=== PATIENT | female | born 1940 | race Caucasian/White ===

== ENCOUNTER 2019-07-20 12:34 | Emergency (ER) | payer MEDICARE ==
[~2019-07-20] VITALS: Ht 170.2 cm; Wt 81.7 kg
[2019-07-20] MEDS ORDERED: PROBIOTIC1 EAC1 PO (12:56)
[2019-07-20] MEDS ORDERED: CENTRUM SILVER1 EAC2 PO (12:56)
[2019-07-20] MEDS ORDERED: Coq-1030 MG PO (12:56)
[2019-07-20] MEDS ORDERED: Fish Oil Conc1000 MG PO (12:57)
== END 2019-07-20 13:36 | disposition home or self-care (01) ==
LOC: ER 12:34
DX: M13.842 Other specified arthritis, left hand (principal); Z88.2 Allergy status to sulfonamides; Z88.0 Allergy status to penicillin; Z79.899 Other long term (current) drug therapy
CPT/HCPCS: 73140; 99283-25

== ENCOUNTER → 2019-08-10 | Outpatient (CLI) | payer MEDICARE ==
[~2019-08-10] MED LIST: CENTRUM SILVER1 EAC2 PO; Coq-1030 MG PO; Fish Oil Conc1000 MG PO; PROBIOTIC1 EAC1 PO
[2019-08-10 15:15] LABS: BASOPHILS ABSOLUTE AUTO 0.06 K/mm3 (0.00-0.23); BASOPHILS PERCENT AUTO 1 % (0-2); EOSINOPHILS ABSOLUTE AUTO 0.09 K/mm3 (0.00-0.68); EOSINOPHILS PERCENT AUTO 1 % (0-6); Hematocrit 37.7 % (33.0-51.0); IMMATURE GRAN ABSOLUTE AUTO 0.02 K/mm3 (0.00-0.10); IMMATURE GRAN PERCENT AUTO 0 % (0-1); LYMPHOCYTES ABSOLUTE AUTO 1.52 K/mm3 (0.84-5.20); LYMPHOCYTES PERCENT AUTO 18 % (21-46); MONOCYTES ABSOLUTE AUTO 0.75 K/mm3 (0.16-1.47); MONOCYTES PERCENT AUTO 9 % (4-13); Mean Corpuscular HGB 29.4 pg (26.0-34.0); Mean Corpuscular HGB Conc 31.8 g/dL (31.5-36.5); Mean Corpuscular Volume 92 fL (80-100); Mean Platelet Volume 11.5 fL (9.1-12.4); NEUTROPHILS ABSOLUTE AUTO 5.97 K/mm3 (1.96-9.15); NEUTROPHILS PERCENT AUTO 71 % (41-73); Platelet Count 278 K/mm3 (150-400); RDW Coefficient Variation 13.5 % (11.7-14.2); RDW Standard Deviation 45.9 fL (35.1-46.3); Red Blood Cell Count 4.08 M/mm3 (3.80-5.20); White Blood Cell Count 8.41 K/mm3 (4.00-11.30)
[2019-08-10 15:36] LABS: Albumin, Blood 3.1 g/dL (3.4-5.0); Albumin/Globulin Ratio 0.8 (0.8-1.8); Bilirubin, Total 0.2 mg/dL (0.1-1.0); Bun/Creatinine Ratio 19.4 (12.0-20.0); Creatinine, Blood 0.98 mg/dL (0.40-1.00); Globulin, Blood 4.1 g/dL (2.2-4.0); Thyroid Stimulating Hormone 0.935 uIU/mL (0.360-4.800); Total Protein, Blood 7.2 g/dL (6.4-8.2)
[2019-08-11 12:02] LABS: Antinuclear Antibody Screen Negative (Negative)
== END | disposition home or self-care (01) ==
LOC: LAB EV 15:08 → LAB SHORT 15:08
PROVIDERS: Physician Assistant
DX: M35.3 Polymyalgia rheumatica (principal); R53.83 Other fatigue
CPT/HCPCS: 80053; 84443; 84550; 85025; 85651; 86038; 86431

== ENCOUNTER → 2019-09-08 | Outpatient (CLI) | payer MEDICARE | END | disposition home or self-care (01) | LOC: LAB SHORT 13:08 → LAB EV 13:08 | DX: M79.10 Myalgia, unspecified site (principal) | CPT/HCPCS: 85651 ==

== ENCOUNTER 2020-03-02 16:24 | Inpatient (IN) | payer MEDICARE ==
[~2020-03-02] VITALS: Ht 170.2 cm; Wt 98.3 kg
[~2020-03-02 16:24] MED LIST changes: -CENTRUM SILVER1 EAC2 PO
[2020-03-02 17:06] LABS: BASOPHILS ABSOLUTE AUTO 0.04 K/mm3 (0.00-0.23); BASOPHILS PERCENT AUTO 0 % (0-2); EOSINOPHILS PERCENT AUTO 0 % (0-6); Hematocrit 40.3 % (33.0-51.0); IMMATURE GRAN ABSOLUTE AUTO 0.13 K/mm3 (0.00-0.10); IMMATURE GRAN PERCENT AUTO 1 % (0-1); LYMPHOCYTES ABSOLUTE AUTO 0.95 K/mm3 (0.84-5.20); LYMPHOCYTES PERCENT AUTO 6 % (21-46); MONOCYTES ABSOLUTE AUTO 0.86 K/mm3 (0.16-1.47); MONOCYTES PERCENT AUTO 5 % (4-13); Mean Corpuscular HGB 29.7 pg (26.0-34.0); Mean Corpuscular HGB Conc 32.3 g/dL (31.5-36.5); Mean Corpuscular Volume 92 fL (80-100); Mean Platelet Volume 11.9 fL (9.1-12.4); NEUTROPHILS ABSOLUTE AUTO 15.25 K/mm3 (1.96-9.15); NEUTROPHILS PERCENT AUTO 89 % (41-73); Platelet Count 196 K/mm3 (150-400); RDW Coefficient Variation 14.6 % (11.7-14.2); Red Blood Cell Count 4.37 M/mm3 (3.80-5.20); White Blood Cell Count 17.23 K/mm3 (4.00-11.30)
[2020-03-02 17:16] LABS: Alanine Aminotransfer (ALT/SGP 19 U/L (12-78); Albumin/Globulin Ratio 0.9 (0.8-1.8); Alk Phos 64 U/L (50-136); Anion Gap 7 mmol/L (6-16); Aspartate Aminotrans (AST/SGOT 12 U/L (12-37); Bilirubin, Total 0.8 mg/dL (0.1-1.0); Blood Urea Nitrogen 21 mg/dL (8-24); Bun/Creatinine Ratio 21.1 (12.0-20.0); CO2, Blood 24 mmol/L (21-32); Calcium, Blood 8.7 mg/dL (8.5-10.1); Chloride, Blood 108 mmol/L (98-108); Globulin, Blood 3.5 g/dL (2.2-4.0); Glomerular Filtration Rate 57 (60-); Glucose, Blood 121 mg/dL (70-99); Potassium, Blood 3.7 mmol/L (3.5-5.5); Sodium, Blood 139 mmol/L (136-145); Total Protein, Blood 6.5 g/dL (6.4-8.2); Troponin I <0.015 ng/mL (0.000-0.040)
[2020-03-02 19:06] LABS: Source, Urine Clean Catch
[2020-03-02 19:11] LABS: Bilirubin, Urine Neg (Neg); Blood, Urine 4+ (Neg); Glucose Qualitative, Urine Neg (Neg); Ketones, Urine 1+ (Neg); Leukocyte Esterase, Urine Neg (Neg); Nitrite, Urine Neg (Neg); Protein, Urine Neg (Neg); Specific Gravity, Urine 1.015 (1.003-1.022); Urobilinogen, Urine NORM (Normal)
[2020-03-02 19:26] LABS: Appearance, Urine Clear (Clear); Color, Urine Yellow (P-Yellow)
[2020-03-02 19:28] LABS: Bacteria Not Seen /hpf; Squamous Epithelial Cells Rare /hpf (Few); White Blood Cells, Urine Not Seen /hpf (0-5)
[2020-03-02] MEDS ORDERED: CENTRUM SILVER1 EAC2 PO (20:38)
[2020-03-02] MEDS ORDERED: PRED1 PO (20:39)
[2020-03-02] MEDS ORDERED: Hydroxychloroq200 MG PO (20:40)
[2020-03-02] MEDS ORDERED: Flonase 0.05% N16 GM (20:41)
[2020-03-02] MEDS ORDERED: GLUCOSAMINE CHONDROI PO (20:45)
--- NOTE | 2020-03-02 23:13 | NUR ---
03/02/20 0602 Ismael Romero PT RECIEVED ANTIBIOTICS IN ED AND WILL BE ON SCHEDULED
--- NOTE | 2020-03-03 00:20 | NUR ---
ADMIT RECEIVED FROM OR S/P SIGMOID COLECTOMY WITH COLOSTOMY. RECOVERY DONE X 1 HOUR AND THEN TRANSFERRED TO ICU STATUS. PT ROUSES TO STIMULI, BUT SLEEPS WHEN UNDISTURBED. ORIENTED AND COOPERATIVE WHEN AWAKE. ATTEMPTS TO ASSIST WITH REPOSITIONING. MOVES ALL EXTREMITIES. MONITOR SHOWS NSR, RATE 80s. BP STABLE. RA SATS STABLE. RESPIRATIONS EVEN AND UNLABORED, BUT SHALLOW. MIDLINE ABDOMINAL INCISION WITH ENRIQUE DRSG INTACT- SMALL AMOUNT OF SANGUINOUS DRAINAGE NOTED. COLOSTOMY TO LEFT ABDOMEN. STOMA IS RED. BTs NOTED IN LUQ. DENIES C/O NAUSEA. OVALLE PATENT AND DRAINING YELLOW URINE. SEE ADMIT ASSESSMENT FOR FULL ASSESSMENT.
[2020-03-03 03:33] LABS: BASOPHILS ABSOLUTE AUTO 0.01 K/mm3 (0.00-0.23); BASOPHILS PERCENT AUTO 0 % (0-2); Hematocrit 38.1 % (33.0-51.0); Hemoglobin 12.1 g/dL (11.5-16.0); LYMPHOCYTES ABSOLUTE AUTO 0.72 K/mm3 (0.84-5.20); LYMPHOCYTES PERCENT AUTO 8 % (21-46); MONOCYTES ABSOLUTE AUTO 0.37 K/mm3 (0.16-1.47); MONOCYTES PERCENT AUTO 4 % (4-13); Mean Corpuscular HGB 29.3 pg (26.0-34.0); Mean Corpuscular HGB Conc 31.8 g/dL (31.5-36.5); Mean Corpuscular Volume 92 fL (80-100); Mean Platelet Volume 11.3 fL (9.1-12.4); Platelet Count 167 K/mm3 (150-400); RDW Coefficient Variation 14.8 % (11.7-14.2); RDW Standard Deviation 50.4 fL (35.1-46.3); Red Blood Cell Count 4.13 M/mm3 (3.80-5.20); White Blood Cell Count 9.65 K/mm3 (4.00-11.30)
[2020-03-03 03:34] LABS: EOSINOPHILS PERCENT AUTO 0 % (0-6); IMMATURE GRAN ABSOLUTE AUTO 0.06 K/mm3 (0.00-0.10); IMMATURE GRAN PERCENT AUTO 1 % (0-1); NEUTROPHILS ABSOLUTE AUTO 8.49 K/mm3 (1.96-9.15); NEUTROPHILS PERCENT AUTO 88 % (41-73)
[2020-03-03 03:48] LABS: Anion Gap 6 mmol/L (6-16); Blood Urea Nitrogen 15 mg/dL (8-24); CO2, Blood 24 mmol/L (21-32); Calcium, Blood 7.8 mg/dL (8.5-10.1); Chloride, Blood 112 mmol/L (98-108); Creatinine, Blood 0.88 mg/dL (0.40-1.00); Glomerular Filtration Rate >60 (60-); Glucose, Blood 115 mg/dL (70-99); Potassium, Blood 3.7 mmol/L (3.5-5.5); Sodium, Blood 142 mmol/L (136-145)
[2020-03-03 04:05] LABS: BAND PERCENT MAN 24 % (0-8); BASOPHILS ABSOLUTE MAN 0.09 K/mm3 (0.00-0.23); BASOPHILS PERCENT MAN 1 % (0-2); EOSINOPHILS PERCENT MAN 0 % (0-6); LYMPHOCYTES ABSOLUTE MAN 0.67 K/mm3 (0.84-5.20); LYMPHOCYTES PERCENT MAN 7 % (21-46); METAMYELOCYTE ABSOLUTE MAN 0.19 K/mm3 (0.00-0.00); METAMYELOCYTE PERCENT MAN 2 % (0-0); MONOCYTES ABSOLUTE MAN 0.38 K/mm3 (0.16-1.47); MONOCYTES PERCENT MAN 4 % (4-13); MYELOCYTE ABSOLUTE MAN 0.09 K/mm3 (0.00-0.00); MYELOCYTE PERCENT MAN 1 % (0-0); SEG NEUTROPHILS PERCENT MAN 61 % (41-73); TOTAL CELLS COUNTED 100
--- NOTE | 2020-03-03 06:20 | NUR ---
O2 O2 SATS DECREASE TO 88% WHILE SLEEPING. O2 ON @ 2LNC AT THIS TIME.
--- NOTE | 2020-03-03 06:48 | NUR ---
SHIFT SUMMARY NO ACUTE CHANGES DURING NOC. ROUSES EASILY TO STIMULI. VERY TALKATIVE WHEN AWAKE. IQUGMIUT. ORIENTED AND COOPERATIVE. EXPRESSES CONCERN REGARDING BILLS THAT NEED TO BE PAID AND THE CARE OF HER SERVICE ANIMAL. PLAN IS TO CALL HER NEIGHBOR THIS AM. ATTEMPTS TO ASSIST WITH REPOSITIONING. MEDICATED WITH FENTANYL X 2 DOSE FOR C/O 7-05/10 PAIN WITH GOOD RELIEF. PT IS ENCOURAGED TO COUGH AND DEEP BREATHE FREQUENTLY, BUT NEEDS FREQUENT REMINDERS. ALSO ENCOURAGED PT TO SPLINT ABDOMEN BEFORE COUGHING. MIDLINE ABD INCISION UNCHANGED. NO DRAINAGE NOTED TO COLOSTOMY. STOMA REMAINS RED. DENIED NAUSEA. OVALLE PATENT AND DRAINING. LR INFUSING @ 125CC/HR. SCDs TO BLE. WILL REPORT TO ONCOMING RN WHEN AVAILABLE.
--- NOTE | 2020-03-03 10:01 | NUR ---
ASSUMED CARE OF PT AT 0700. REPORT FROM ALMITA TELLES. PT RESTING IN BED. WAKES c VERBAL STIMULI. A&OX 4. ANSWERS QUESTIONS APPROPRIATELY. FOLLOWS COMMANDS. PT C/O LLQ PAIN AND GENERALIZED CRAMPING. UNRELIEVED FROM FENTANYL. FENTANYL QUALITY CONTROLLER STARTED, DR SANTIAGO NOTIFIED. MEDICATED c VALIUM IV. ABD SOFT, TENDER. BY X 4. ENRIQUE DRESSING MIDLINE, C/D/I, RED DRAINAGE ON BOTTOM. COLOSTOMY TO LLQ. SCANT PINK DRAINAGE IN BAG. LUNGS DIMINISHED IN BASES. PT P/W/D. ENCOURAGED COUGH AND DEEP BREATHING. PT RELUCTANT D/T PAIN. VSS. PT OK TO HAVE ICE CHIPS PER DR SANTIAGO. WILL CONTINUE TO MONITOR.
--- NOTE | 2020-03-03 17:27 | NUR ---
SHIFT SUMMARY FENTANYL MANAGER PARKING STARTED THIS SHIFT. PT STATES PAIN RANGED FROM 5-8/10. ALSO REPORTED CRAMPING. MEDICATED c VALIUM IV ORDERED. PT c INCREASED PAIN c MOVEMENT. ENCOURAGED DEEP BREATHING, PT RELUCTANT D/T PAIN. ABD SOFT, TENDER, BT X 4. DRESSING C/D/I. NO CHANGE TO COLOSTOMY SITE. VSS. REPORT TO NELIA TELLES. PT TRANSFERRED TO SURGICAL FLOOR. ALL BELONGINGS c PT.
--- NOTE | 2020-03-04 06:07 | NUR ---
POD 1 S/P EXPLOR LAP SIGMOID DONTA W/ COLOSTOMY DUE TO PERFORATION OF SIGMOID COLON. PT PAIN MGMNT W/ CONTRACT NEGOTIATOR FENTANYL. HAS REFUSE REPOSITIONING DUE TO PAIN. NPO, W/ ICE CHIPS AND SIPS FOR MEDS. USED N/C 2L O2 AT SLEEP (PERSONAL PREFERNCE) SHE IS ON RA ON BASELINE/ REG HOURS. SHE WAS TEARY AT THE BEGINNING OF THE SHIFT WHEN SHE TALKS ABOUT HER MOTHER WHO YEARS AGO. EMO SUPPORT PRN. ABD WOUND VAC, SMALL AMT SANGUINOUS DRAIN AT THE BUTTOM. DISC OVALLE CATH. DENIES N/V, OSTOMY NO OUTPUT.
--- NOTE | 2020-03-04 08:06 | NUR ---
POD 2 S/P COLECTOMY+COLOSTOMY. PT VSS T/O NIGHT, SATS >90% ON RA, PT USING 2LNC WHILE SLEEPING FOR COMFORT. ENRIQUE DRESSING INTACT W/SMALL AMT SHADOWING AT DISTAL END. PAIN MGD W.ENROLLMENT ADVISOR+NON PHARM MEASURES. PT NPO X ICE CHIPS, NO N/V, NO OSTOMY OUTPUT. PT EMOTIONAL AT TIMES, NEEDING SUPPORT AND ENCOURAGEMENT OFTEN DURING NIGHT. PT ENCOURAGED TO ASSIST W/ADL'S AND REPOSITIONING, PT REFUSED ALL OFFERS OF REPOSITIONING DURING NIGHT. OVALLE CATH D/C THIS AM; AWAITING FIRST VOID. PT USING CALL LIGHT FOR ASSISTANCE, BEDSIDE REPORT GIVEN TO DAY RN.
--- NOTE | 2020-03-04 17:23 | NUR ---
PT CONTINUES TO COMPLAIN OF PAIN WITH ANY MOVEMENT . SHE REFUSES TO GET UP IN CHAIR AND REQUIRED A LOT OF ENCOURAGEMENT TO GET ONTO THE BSC. SHE COMPLAINS OF BEING DIZZY OR NAUSEATED WHEN BEING REPOSITIONED THOUGH HAS NOT ACTUALLY VOMITTED OR PASSED OUT WHEN SHE IS CHANGING POSITION. PT HAS HAD LIQUIDS AND JELLO, BOTH OF WHICH HAVE STAYED DOWN. PT HAS VOIDED IN BSC. CALL LIGHT WITHIN REACH.
--- NOTE | 2020-03-05 02:57 | NUR ---
PT'S LEFT HAND IV NOT PATENT, TENDER AND PT FELT PAIN WHILE FLUSHING. DC'S IV CATH INTACT. WRAPPED WITH COBAN AND GAUZE.
--- NOTE | 2020-03-05 06:43 | NUR ---
POD1 REPORTS NAUSEA, STS ATE TOO MUCH DINNER. SHE IS ON CLEAR LIQ DIET. AT 0130 SHE REPORTS CP AND SOB. SHE ALSO WANTED TO USE THE BEDSIDE COMODE TO URINATE. ALSO STS PRESSURE ON BACK FEELS LIKE WANTING TO DEFACATE. PT STS FEELING DIZZY AND NAUSEA WHEN MOVING TO BEDSIDE COMODE. SHE ALSO C/O OF IV HURTING ON L HAND. DC'D IV. DENIES PASSING FLATUS. NO BM. PAIN MNGMENT W/ PROCESS ENGINEERING MANAGER PUMP. VS WNL.
--- NOTE | 2020-03-05 08:05 | NUR ---
POD 2 S/P COLECTOMY+COLOSTOMY. PT VSS T/O NIGHT. NO NEW DRESSING NOTED ON DRESSIN, GOOD SEAL AND SX MAINTAINED. PT HAD BRIEF EPISODE OF NAUSEA/DIZZINESS WHEN FIRST UP, REP RELIEF W/ZOFRAN. BT HYPO, NO OSTOMY OUTPUT. PT DID C/O UPPER ABD/CP REP RELIEF AFTER BELCHING SEVERAL TIMES. PT NEEDING CONT ENCOURAGEMENT AND MOTIVATION TO MOBILIZE. PT REP PAIN HELGA W/COUNSELOR AIDE. PT USING CALL LIGHT FOR ASSISTANCE, REPORT GIVEN TO DAY RN.
--- NOTE | 2020-03-05 09:25 | NUR ---
TALKED WITH THE PATIENT ABOUT GETTING UP TODAY. SHE NOTED THAT SHE THINKS SHE IS DIZZY AND IS WEARY OF GETTING UP TODAY. WILL CONTINUE TO TRY.
--- NOTE | 2020-03-05 18:05 | NUR ---
SHIFT SUMMARY PATIENTS VITALS ARE STABLE. SHE HAS BEEN UP IN THE CHAIR TODAY TWICE AND IS CURRENTLY PLEASANT. SHE HAS BEEN PRESSING HER ON DEMAND PAIN BUTTON FOR HER MEAT STRINGER PUMP. SHE IS ABLE TO GET UP FROM THE BED TO THE BEDSIDE COMMODE ONE PERSON, MORE FOR ANXIETY. DR. TAYLOR DID OKAY FOR THE PATIENT TO USE HER NOELLE MANISH OIL AN INHALANT FOR ANXIETY.
--- NOTE | 2020-03-06 04:34 | NUR ---
SHIFT SUMMARY: GABRIELLA IS A&OX4. VERBOSE. SHE RATES HER PAIN 7-8/10, STATING THAT SHE IS HAVING INCREASED CRAMPING AND ABDOMINAL DISCOMFORT, BP IS ELEVATED THIS SHIFT. SHE IS PASSING FLATUS THROUGH HER STOMA. NEW ENRIQUE AND OSTOMY APPLIANCE APPLIED THIS SHIFT. SHE IS TOLERATING CLEAR LIQUIDS WITH MINIMAL NAUSEA. SHE REQUESTED ANTIFUNGAL POWDER FOR UNDERNEATH HER LEFT BREAST WHICH WAS FOUND TO BE REDDENED. SHE ALSO REQUESTED EYE DROPS FOR DRY EYE. SHE IS A ONE PERSON ASSIST TO THE BEDSIDE COMMODE. SHE COMPLAINED OF FEELING FAINT BOTH TIMES SHE WAS UP TO THE COMMODE. VSS. SHE IS ABLE TO MAKE HER NEEDS KNOWN. SHE IS LYING IN BED WITH THE CALL LIGHT IN REACH. WILL REPORT TO DAY SHIFT RN.
--- NOTE | 2020-03-06 16:16 | NUR ---
Shift Summary AOx3. Patient is a SBA to the BS. Patient encouraged to ambulate in room throughout the day. Patient worked with PT. Patient voiding clear yellow urine. Patient passing flatus through ostomy with scant amount light pink fluid. Pain controlled with Fentanyl HEAVY EQUIPMENT SALES MANAGER pump. Patient advanced to full liquid diet this shift. Midline incision CDI.
--- NOTE | 2020-03-06 22:17 | NUR ---
L FA IV HAS SOME REDNESS, NO SWELLING, PT REPORTS ITCHING, LEVOFLOXACIN CURRENTLY INFUSING. IV FLUSHES WELL AND DRAWS BLOOD WELL, PRIMARY RN HAS CHANGED IVF NS TO RUN CONCURENT WITH LEVOFLOXACIN, SHE WILL REASSESS.
--- NOTE | 2020-03-07 04:37 | NUR ---
SHIFT SUMMARY: GABRIELLA IS A&OX4, WITH SOME EPISODES OF MILD CONFUSION. SHE IS TOLERATING A CLEAR LIQUID DIET WELL. FENTANYL PRIMARY CARE PROVIDER HAS BEEN DISCONTINUED. PT TAKING ORAL NORCO. SHE IS ABLE TO MAKE HER NEEDS KNOWN. ENRIQUE PATENT, OSTOMY DRAINING FLATUS AND SMALL AMOUNTS LIQUID BROWN/GREEN STOOL. SHE IS A ONE PERSON ASSIST TO THE BEDSIDE COMMODE. SHE USES HER CALL LIGHT APPROPRIATELY. SHE IS CONCERNED ABOUT TAKING A FULL TABLET OF NORCO AND WONDERS IF A HALF MAY BE APPROPRIATE FOR HER DUE TO HER HISTORY OF SENSITIVITY TO MEDICATION. BILATERAL IVs PATENT. SHE IS LYING IN BED WITH HER CALL LIGHT IN REACH. WILL REPORT TO DAY SHIFT RN.
--- NOTE | 2020-03-07 16:54 | NUR ---
Shift summary Ostomy putting out small amount liquid brown stool. Flatus passing through stoma. Pain controlled with PO Alexander. Patient tolerating regular diet. Patient has been a 1 person assist in the room. Call light within patient reach.
--- NOTE | 2020-03-08 05:50 | NUR ---
SHIFT SUMMARY: GABRIELLA IS A&O. SHE REPORTS NAUSEA AFTER ADVANCING TO REGULAR DIET. SHE IS A ONE PERSON ASSIST TO THE BEDSIDE COMMODE. SHE IS ABLE TO REPOSITION HERSELF IN BED. IVs TO LEFT FOREARM AND RIGHT HAND PATENT. ENRIQUE TO MIDLINE. OSTOMY DRAINING LIQUID GREEN/BROWN STOOL AND FLATUS. VSS, ORA. SHE DECLINES TO TAKE PART IN SANDRA OR OSTOMY CARE. SHE USES THE CALL LIGHT APPROPRIATELY. SHE IS LYING IN BED WITH THE CALL LIGHT IN REACH. WILL REPORT TO DAY SHIFT RN.
--- NOTE | 2020-03-08 13:59 | NUR ---
PT REPORTS FEELING DIZZY AT THIS TIME. BP WNL. PT REPORTS PAIN AND ALSO REPORTS FEELING "EXHAUSTED." PT WAS ASSISTED BACK TO BED FROM THE CHAIR WITHOUT DIFFICULTIES, SHE WAS ABLE TO REPOSITION HERSELF IN BED. STAFF ASSISTED WITH PLACING PILLOWS UNDER HER LEGS FOR COMFORT. PILLOWS ALSO PLACED AT HER SIDES FOR ADDITIONAL COMFORT. PHONE AND CALL LIGHT WITHIN REACH. PT DECLINED PAIN MEDICATION AT THIS TIME.
--- NOTE | 2020-03-08 17:56 | NUR ---
PT HAS COMPLAINED OF DIZZINESS THIS AFTERNOON. SHE IS DENYING PAIN MEDICATION AT THIS TIME BECAUSE SHE IS AFRAID THE DIZZINESS WILL WORSEN. PT'S BP IS ELEVATED, DR. SANTIAGO NOTIFEID. DR. SANTIAGO WAS ALSO NOTIFIED OF R LEG PAIN. PT DESCRIBES THIS LEG PAIN SHARP AND BURNING. ICE RELIEVES PAIN. PT BELIEVES THE PAIN IS CORRELATED WITH ANTIBIOTIC ADMINISTRATION. DR. SANTIAGO WAS NOTIFIED OF THIS CONCERN; HE REPORTED THAT SHOULD NOT BE CAUSING THE PAIN. VSS. WILL CONTINUE TO MONITOR.
--- NOTE | 2020-03-08 19:10 | NUR ---
SHIFT SUMMARY PT IS POD# 5 FROM A SIGMOID COLECTOMY WITH OSTOMY. SHE HAS BEEN ALERT AND ORIENTED T/O THE SHIFT. PAIN HAS BEEN MANAGED WITH PO PAIN MEDICATION. PT DECLINED PAIN MEDICATION THIS AFTERNOON BECAUSE SHE WAS FEELING DIZZY. DR. SANTIAGO NOTIFIED OF DIZZINESS AND HIGH BP. PT GIVEN TYLENOL TO ATTEMPT TO MANAGE PAIN AND HELP WITH BP BUT AVOID DIZZINESS. PT HAS BEEN APPROPRIATE WITH STAFF THIS SHIFT, SHE PREFERS TO DIRECT HER OWN CARE. PT HAS BEEN PROVIDED WITH CARE, 2 STAFF MEMBERS OR STAFF AND STUDENT NURSE T/O THE DAY. VSS. REPORT GIVEN TO RANJAN TELLES.
[2020-03-09 04:35] LABS: Hematocrit 38.7 % (33.0-51.0); Hemoglobin 12.1 g/dL (11.5-16.0); Mean Corpuscular HGB 28.7 pg (26.0-34.0); Mean Corpuscular HGB Conc 31.3 g/dL (31.5-36.5); Mean Corpuscular Volume 92 fL (80-100); Mean Platelet Volume 11.2 fL (9.1-12.4); Platelet Count 241 K/mm3 (150-400); RDW Coefficient Variation 15.2 % (11.7-14.2); RDW Standard Deviation 51.6 fL (35.1-46.3); Red Blood Cell Count 4.21 M/mm3 (3.80-5.20); White Blood Cell Count 7.67 K/mm3 (4.00-11.30)
--- NOTE | 2020-03-09 04:44 | NUR ---
SHIFT SUMMARY POD #6 SIGMOID COLECTOMY WITH OSTOMY. ENRIQUE TO MIDLINE APPEARS C/D/I WITH NO DRAINAGE. OSTOMY PRODUCING SMALL AMOUNT OF LIGHT BROWN LIQUID, STOMA PINK/BEEFY RED. UP TO BSC WITH FWW/GB/SBA. VOIDING CLEAR YELLOW URINE WITHOUT DIFFICULTY. REPORTS SOME URGENCY WITH DRIBBLING IN ATTENDS X1. HELGA PO INTAKE. REPORTS ONE EPISODE OF NAUSEA, DECLINED NEED FOR MEDICATION. REPOSITIONED OFTEN T/O SHIFT, PT ABLE TO ASSIST. MEDICATED FOR PAIN WITH TYLENOL ONLY PER PT REQUEST; DENIES NARCOTICS. EDUCATED PT ON IMPORTANCE OF KEEPING BP WNL, PT REFUSED EDUCATION AND NEED FOR BLOOD PRESSURE MEDICATION. MAINTAINED 2 STAFF MEMBERS IN ROOM WHILE CARING FOR PT OR UPON ENTERING ROOM. PT CURRENTLY RESTING IN BED WITH CALL LIGHT IN REACH. WILL CONT TO MONITOR AND GIVE REPORT TO ONCOMING RN.
[2020-03-09 04:52] LABS: Anion Gap 3 mmol/L (6-16); Blood Urea Nitrogen 13 mg/dL (8-24); Bun/Creatinine Ratio 18.2 (12.0-20.0); CO2, Blood 31 mmol/L (21-32); Calcium, Blood 8.3 mg/dL (8.5-10.1); Chloride, Blood 109 mmol/L (98-108); Creatinine, Blood 0.71 mg/dL (0.40-1.00); Glomerular Filtration Rate >60 (60-); Glucose, Blood 108 mg/dL (70-99); Potassium, Blood 4.9 mmol/L (3.5-5.5); Sodium, Blood 143 mmol/L (136-145)
--- NOTE | 2020-03-09 14:20 | NUR ---
OSTOMY APPLIANCE CHANGED PT TOLERATED OSTOMY APPLIANCE CHANGE WELL. PT LISTENED TO EDUCATION AND ASKED QUESTIONS. SHE APPEARED TO BE RECEPTIVE TO EDUCATION AND UNDERSTAND. SHE DID VOICE SOME CONCERN ABOUT MANAGING HER OSTOMY AT HOME. OVERRALL SHE WAS POSSITIVE ABOUT THE EDUCATION. WILL MONITOR UNTIL DISCHARGE.
--- NOTE | 2020-03-09 14:29 | NUR ---
PT IS PASSING SOME LIQUID STOOL AND FLATUS FROM OSTOMY.
--- NOTE | 2020-03-09 15:08 | NUR ---
DISCHARGE REPORT CALLED TO [facility]SE AT [facility]. PT DISCHARGED AT APPROXIMATELY 1500. PT'S BELONGINGS RETURNED TO THE PT AT TIME OF DISCHARGE. PT ESCORTED OUT IN W/C.
== END 2020-03-09 15:02 | DRG 329 ==
LOC: ER 16:24 → SURS 20:51 → ICUW 20:51 → SURS 03-03 17:48
PROVIDERS: Physician Assistant; ADMIT Surgery
PROC: 0DTN0ZZ Resection of Sigmoid Colon, Open Approach (ICD-10-PCS; principal; 2020-03-03)
PROC: 0D1N0Z4 Bypass Sigmoid Colon to Cutaneous, Open Approach (ICD-10-PCS; 2020-03-03)
DX: K57.20 Diverticulitis of large intestine with perforation and abscess without bleeding (principal); K65.0 Generalized (acute) peritonitis; F43.10 Post-traumatic stress disorder, unspecified; R53.82 Chronic fatigue, unspecified; K58.9 Irritable bowel syndrome, unspecified; M79.7 Fibromyalgia; E66.9 Obesity, unspecified; Z68.32 Body mass index [BMI] 32.0-32.9, adult
CPT/HCPCS: 36415; 74177; 80048; 80053; 81001; 83605; 83690; 84484; 85025; 85027; 86850; 86900; 86901; 87040; 88307; 93005; 93010; 96361-59; 96365-59; 97110; 97116; 97163; 97530; 99285-25; A9270; A9270-GY; J0330; J1170; J1650; J1720; J1956; J2185; J2370; J2405; J2704; J2710; J3010; J3360; J7030; J7050; J7120; J7512; Q9967; U0002

== ENCOUNTER 2020-03-14 18:20 | Inpatient (IN) | payer MEDICARE ==
[~2020-03-14] VITALS: Ht 170.2 cm; Wt 93.4 kg
[~2020-03-14 18:20] MED LIST changes: +CENTRUM SILVER1 EAC2 PO; +Flonase 0.05% N16 GM; +GLUCOSAMINE CHONDROI PO; +Hydroxychloroq200 MG PO; +PRED1 PO
[2020-03-14 18:38] LABS: BASOPHILS ABSOLUTE AUTO 0.11 K/mm3 (0.00-0.23); BASOPHILS PERCENT AUTO 0 % (0-2); EOSINOPHILS PERCENT AUTO 0 % (0-6); Hematocrit 50.5 % (33.0-51.0); Hemoglobin 15.8 g/dL (11.5-16.0); IMMATURE GRAN PERCENT AUTO 1 % (0-1); LYMPHOCYTES ABSOLUTE AUTO 0.72 K/mm3 (0.84-5.20); LYMPHOCYTES PERCENT AUTO 2 % (21-46); MONOCYTES ABSOLUTE AUTO 1.29 K/mm3 (0.16-1.47); MONOCYTES PERCENT AUTO 4 % (4-13); Mean Corpuscular HGB 28.7 pg (26.0-34.0); Mean Corpuscular HGB Conc 31.3 g/dL (31.5-36.5); Mean Corpuscular Volume 92 fL (80-100); Mean Platelet Volume 11.1 fL (9.1-12.4); NEUTROPHILS ABSOLUTE AUTO 28.41 K/mm3 (1.96-9.15); NEUTROPHILS PERCENT AUTO 92 % (41-73); Platelet Count 368 K/mm3 (150-400); RDW Coefficient Variation 15.5 % (11.7-14.2); White Blood Cell Count 30.83 K/mm3 (4.00-11.30)
[2020-03-14 18:57] LABS: Alanine Aminotransfer (ALT/SGP 39 U/L (12-78); Albumin, Blood 3.1 g/dL (3.4-5.0); Albumin/Globulin Ratio 0.7 (0.8-1.8); Alk Phos 122 U/L (50-136); Anion Gap 9 mmol/L (6-16); Aspartate Aminotrans (AST/SGOT 23 U/L (12-37); Bilirubin, Total 0.8 mg/dL (0.1-1.0); Blood Urea Nitrogen 24 mg/dL (8-24); Bun/Creatinine Ratio 30.9 (12.0-20.0); CO2, Blood 22 mmol/L (21-32); Calcium, Blood 11.7 mg/dL (8.5-10.1); Chloride, Blood 106 mmol/L (98-108); Creatinine, Blood 0.78 mg/dL (0.40-1.00); Globulin, Blood 4.3 g/dL (2.2-4.0); Glomerular Filtration Rate >60 (60-); Glucose, Blood 174 mg/dL (70-99); Potassium, Blood 4.3 mmol/L (3.5-5.5); Sodium, Blood 137 mmol/L (136-145); Total Protein, Blood 7.4 g/dL (6.4-8.2)
[2020-03-14 22:39] LABS: Source, Urine Clean Catch
[2020-03-14 23:06] LABS: Leukocyte Esterase, Urine Neg (Neg); Nitrite, Urine Neg (Neg); Protein, Urine 1+ (Neg); Specific Gravity, Urine 1.015 (1.003-1.022)
[2020-03-14 23:07] LABS: Appearance, Urine Clear (Clear); Bilirubin, Urine Neg (Neg); Blood, Urine Trace (Neg); Color, Urine Amber (P-Yellow); Glucose Qualitative, Urine Neg (Neg); Ketones, Urine Neg (Neg); Urobilinogen, Urine NORM (Normal)
[2020-03-14 23:08] LABS: Bacteria Few /hpf; Calcium Oxalate Crystals Mod /hpf; Red Blood Cells, Urine 0-2 /hpf (0-2); Squamous Epithelial Cells Few /hpf (Few); White Blood Cells, Urine Rare /hpf (0-5)
--- NOTE | 2020-03-15 05:40 | NUR ---
03/15/20 0420 PT ASSISTED UP TO BSC WITH HELP OF ONSHORE DIVER AND RN. C/O SLIGHT DIZZINESS AND NAUSEA. VOIDED 100 ML OF COFFEE COLORED URINE. ASSISTED BACK BACK TO BED. PT VERY COLD AND CLAMMY. WARM BLANKETS APPLIED. INFORMED PT TOO SOON FOR NAUSEA MED.
--- NOTE | 2020-03-15 05:45 | NUR ---
03/15/20 0430 PT STILL COLD AND CLAMMY. BLOOD SUGAR DONE AND WAS 146. RN DISCUSSED EVENTS WITH SHEET METAL HELPEREDGAR. WILL RECHECK VITALS AND EVALUATE PT STATUS.
--- NOTE | 2020-03-15 05:48 | NUR ---
03/15/20 0455 VITALS TAKEN AND RN HAVING TROUBLE GETTING TEMP. PT UNCOOPERATIVE WITH ORAL THERMOMETER AND WOULD NOT KEEP IT IN PLACE. BP DROPPING AND HR INCREASING. DISCUSSED EVENTS WITH CORPORATE QUALITY ENGINEER, EDGAR AND "RAPID RESPONSE" CALLED AT 0505. RN UPDATED R.R RESPONSE TEAM OF EVENTS. RN PAGED DR LAU'S ANSWERING SERVICE AND WILL HAVE HIM CALL BACK. PT TRANFERRED TO ICU VIA BED AT 0525. RN SPOKE WITH DR LAU ABOUT EVENTS AND TRANFER TO ICU. STATED "OKAY."
--- NOTE | 2020-03-15 06:30 | NUR ---
SUMMARY APROX 0530 PATIENT ARRIVED TO ICU 1 FROM 353 AFTER RAPID CALLED. PATIENT AWAKE AND ANSWERING QUESTIONS, VERY PALE AND DIAPHORETIC, SKIN COLD TO TOUCH. DOCTOR SID CALLED AND NOTIFIED OF TRANSFER, ORDER OBTAINED FOR HOSPITALIST CONSULT. DOCTOR MARISEL NOTIFIED. DOCTOR MARISEL IN TO SEE PATIENT. NG AND OVALLE PLACED. NG DRAINING LIGHT BROWN, STRONG SMELLING LIQUID. URINE IS DARK ESE. LR 500 CC BOLUS INFUSING. HAVING DIFFICULTY OBTAINING BP.
[2020-03-15 06:49] LABS: Source, Urine Catheter
[2020-03-15 06:55] LABS: Glucose Qualitative, Urine Neg (Neg); Ketones, Urine Neg (Neg); Leukocyte Esterase, Urine Trace (Neg); Nitrite, Urine Neg (Neg); Protein, Urine Neg (Neg); Specific Gravity, Urine 1.015 (1.003-1.022); Urobilinogen, Urine 1+ (Normal)
[2020-03-15 06:56] LABS: Appearance, Urine Hazy (Clear); Bilirubin, Urine 2+ (Neg); Blood, Urine Neg (Neg); Color, Urine Amber (P-Yellow)
[2020-03-15 07:06] LABS: Bacteria Mod /hpf; Red Blood Cells, Urine 0-2 /hpf (0-2); Squamous Epithelial Cells Mod /hpf (Few)
[2020-03-15 07:14] LABS: Hematocrit 53.6 % (33.0-51.0); Hemoglobin 16.4 g/dL (11.5-16.0); Mean Corpuscular HGB 29.1 pg (26.0-34.0); Mean Corpuscular HGB Conc 30.6 g/dL (31.5-36.5); Mean Platelet Volume 11.6 fL (9.1-12.4); Platelet Count 312 K/mm3 (150-400); RDW Coefficient Variation 16.7 % (11.7-14.2); RDW Standard Deviation 56.5 fL (35.1-46.3); Red Blood Cell Count 5.64 M/mm3 (3.80-5.20); White Blood Cell Count 10.45 K/mm3 (4.00-11.30)
[2020-03-15 07:18] LABS: Mean Corpuscular Volume 95 fL (80-100)
[2020-03-15 07:42] LABS: Albumin, Blood 2.5 g/dL (3.4-5.0); Albumin/Globulin Ratio 0.6 (0.8-1.8); Bilirubin, Total 0.7 mg/dL (0.1-1.0); Bun/Creatinine Ratio 27.4 (12.0-20.0); Calcium, Blood 10.6 mg/dL (8.5-10.1); Creatinine, Blood 1.46 mg/dL (0.40-1.00); Globulin, Blood 4.1 g/dL (2.2-4.0); Potassium, Blood 4.7 mmol/L (3.5-5.5); Total Protein, Blood 6.6 g/dL (6.4-8.2)
[2020-03-15 07:57] LABS: BAND PERCENT MAN 28 % (0-8); BASOPHILS PERCENT MAN 1 % (0-2); EOSINOPHILS PERCENT MAN 0 % (0-6); LYMPHOCYTES ABSOLUTE MAN 0.94 K/mm3 (0.84-5.20); LYMPHOCYTES PERCENT MAN 9 % (21-46); METAMYELOCYTE PERCENT MAN 1 % (0-0); MONOCYTES ABSOLUTE MAN 1.14 K/mm3 (0.16-1.47); MONOCYTES PERCENT MAN 11 % (4-13); NEUTROPHILS ABSOLUTE MAN 8.15 K/mm3 (1.96-9.15); SEG NEUTROPHILS PERCENT MAN 50 % (41-73); TOTAL CELLS COUNTED 100
--- NOTE | 2020-03-15 11:25 | NUR ---
REPORT TAKEN AT 0715 THIS AM. PT NEW TRANSFER TO ICU POST RAPID RESPONSE. PT AWAKE, DROWSY, C/O PAIN 10/10 TO ABD. PT HAS ACUTE ABD; DISTENDED, FIRM, PAINFUL TO LIGHT PALP. PT HYPOTENSIVE AND RECEIVING BOLUS, HEART RATE 100-115, RESP 20-30'S, SATS STABLE >90% ON 3.5L VIA N/C. PT PALE, DIAPHORECTIC, W POOR PERIPHERAL PERFUSION T/O. TEMP LOW GRADE 99-100.2 VIA OVALLE CATH. LACTIC ACID CH AT 6.4. DR LAU IN TO SEE PT AROUND 0730. STOMA EXAMINED WITH [address] SHOWS INFLAMATION; NO INDICATION FOR SURGICAL INTERVENTION AT THIS TIME PER DR LAU. ORDERS TO GIVE MIRALAX DOWN NG TUBE. DR NAVARRETE CALLED AT 0745 TO GIVE FULL UPDATE. ORDERS PLACED. DR MCKEON CONSULTED, CALLED, AND UPDATED. FENT 25MCG GIVEN WITH NO IMPROVEMENT IN PAIN. DR MCKEON AT BEDSIDE THIS AM AT 0830 WITH THIS RN. 3.5L FLUIDS HAD BEEN BOLUSED, 2 ADDITIONAL LITERS BOLUSED. PT RESPONSIVE TO FLUIDS WITH IMPROVED BP, BUT PT BECOMES HYPOTENSIVE ONCE FLUIDS COMPLETE. LEVOPHED AND VASOPRESSIN ORDERED AND HAVE NOT BEEN STARTED YET MAP >65 WITH FLUIDS AND ALBUMIN INFUSING. MIRALAX ON HOLD UNTIL BP STABILIZES PER DR MCKEON. 700CC JONES/PURULENT OUTPUT FROM NG THIS SHIFT. NO URINE OUTPUT; DR MCKEON AWARE. DILAUDID IV 0.5MG GIVEN X2 FOR ABD PAIN 10/10. PT STATED THIS HELPED THE MOST WITH PAIN. PT ABLE TO DOZE ON AND OFF BUT HAS 10/10 PAIN WITH ANY MOVEMENT.
--- NOTE | 2020-03-15 14:36 | NUR ---
PT'S PAIN HAS BEEN BETTER CONTROLLED WITH DILAUDID. 02 TITRATED DOWN TO 2L. LUNGS CLEAR. SATS REMAIN >90%. PT REMAINS COOL AND PALE, NO LONGER DIAPHORETIC. BP STABLE W/O PRESSORS. LR RUNNING AT 150CC/HR. PT RECEIVED A TOTAL OF 3 DOSES/75GM ALBUMIN AND 5.5L BOLUS LR/NS. 1ST DOSE OF MIRALAX GIVEN, NG CLAMPED, PHENERGAN GIVEN. BT'S ABSENT, ABD REMAINS, FIRM, DISTENDED, AND TENDER. HEART RATE DID INCREASE FROM 100/110 TO 120/130'S AFTER MIRALAX STARTED.
--- NOTE | 2020-03-15 14:50 | NUR ---
PT SAMINA CARDONA PLACED BACK TO SX. LACTIC ACID UP TO 9. DR MCKEON NOTIFIED, WELL DR LAU. DR LAU TO BE BY SHORTLY TO SEE PT.
--- NOTE | 2020-03-15 15:21 | NUR ---
DR LAU IN TO SEE PT. PT TO GO FOR EXP SURGERY SHORTLY. PT'S SISTER NOTIFIED PER PT REQUEST. DR MCKEON NOTIFIED.
--- NOTE | 2020-03-15 15:46 | NUR ---
CONSENT SIGNED (VERBAL). SPORTS FITNESS AND WELLNESS DIRECTOR'S AT BEDSIDE PREPPING PT. PT GIVEN 0.5MG DILAUDID FOR 9/10 ABD PAIN. NG CONT TO PUT OUT JONES FLUID. 90CC DARK ESE URINE EMPTIED. PT'S SISTER COLLEEN UPDATED.
--- NOTE | 2020-03-15 16:25 | NUR ---
PT TO OR. FULL REPORT GIVEN TO ANESTHESIOLOGIST. LEVOPHED AND VASOPRESSIN SENT DOWN PROGRAMMED ON PUMP; ON STANDBY. COVID-19 RAPID NEG.
--- NOTE | 2020-03-15 18:21 | NUR ---
03/15/201820 Linda Griffin PT ENTERED OR WITH OVALLE CATHETER
== END 2020-03-15 17:16 | DRG 871 ==
LOC: ER 18:20 → ICUE 21:32 → SURS 21:32 → ER 21:32 → SURS 23:36 → MEDS 23:36 → ICUE 03-15 05:25 → MEDS 03-15 07:44 → ICUE 03-15 07:44 → SURS 03-15 07:44 → ICUE 03-15 17:16
PROVIDERS: Emergency Medicine; Internal Medicine; ADMIT Surgery
PROC: 02HV33Z Insertion of Infusion Device into Superior Vena Cava, Percutaneous Approach (ICD-10-PCS; 2020-03-15)
PROC: 5A12012 Performance of Cardiac Output, Single, Manual (ICD-10-PCS; principal; 2020-03-15 16:00)
DX: A41.9 Sepsis, unspecified organism (principal); R65.21 Severe sepsis with septic shock; K65.0 Generalized (acute) peritonitis; N17.9 Acute kidney failure, unspecified; K56.609 Unspecified intestinal obstruction, unspecified as to partial versus complete obstruction; K57.20 Diverticulitis of large intestine with perforation and abscess without bleeding; I46.9 Cardiac arrest, cause unspecified; M79.7 Fibromyalgia; F43.10 Post-traumatic stress disorder, unspecified; K58.1 Irritable bowel syndrome with constipation; M54.9 Dorsalgia, unspecified; I95.9 Hypotension, unspecified; Z93.3 Colostomy status; Z20.828 Contact with and (suspected) exposure to other viral communicable diseases
CPT/HCPCS: 36415; 36569; 51702; 71045; 74018; 74177; 80053; 81001; 82947; 83605; 83690; 85025; 87040; 87086; 93005; 93010; 94003; 96361-59; 96374-59; 99285-25; C1751; J1170; J1720; J1885; J1956; J2185; J2248; J2370; J2405; J2550; J2704; J2765; J3010; J7030; J7050; J7120; P9046; Q9967; U0002